=== PATIENT | male | born 1985 | race African-American/Black ===

== ENCOUNTER 2025-03-31 02:43 | Emergency (ER) | payer MEDICAID ==
[~2025-03-31] VITALS: Ht 172.7 cm; Wt 95.2 kg
[2025-03-31 02:45] VITALS: O2SAT 99
[2025-03-31] MEDS: IBUPROFEN 600MG TABLET PO ONE (03:15)
[2025-03-31] MEDS: HYDROCODONE/ACETAMINOPHEN 5/325MG TABLET PO ONE (03:15)
[2025-03-31] MEDS ORDERED: HYDR-4001 MT (04:21)
[2025-03-31] MEDS ORDERED: IBUP-1455 MT (04:21)
[2025-03-31 04:32] VITALS: BP 127/93; PULSE 91; RESP 18; TEMP 37; O2SAT 98
== END 2025-03-31 04:33 | disposition home or self-care (01) ==
LOC: ER 02:43
DX: S60.222A Contusion of left hand, initial encounter (principal); Y04.0XXA Assault by unarmed brawl or fight, initial encounter; Y93.89 Activity, other specified; Y92.89 Other specified places as the place of occurrence of the external cause; Y99.8 Other external cause status
CPT/HCPCS: 73130; 99283